=== PATIENT | male | born 1985 | race Caucasian/White ===

== ENCOUNTER 2018-03-01 15:23 | Emergency (ER) | payer OTHER ==
[~2018-03-01] VITALS: Ht 172.7 cm; Wt 83.9 kg
[2018-03-01] MEDS ORDERED: HYDR25TA PO (16:01)
--- NOTE | 2018-03-01 16:02 | PHYS DOC ---
Past History Past Medical History: Anxiety, GERD Past Surgical History: No Surgical History Alcohol Use: Rarely Drug Use: None Adult General Chief Complaint Chief Complaint: CHEST PAIN [facility] HPI Patient is a 32 year old male who presents with complaining of chest pain. Patient complaining of sudden onset of left-sided sharp chest pain with radiation to left shoulder while driving about 30 minutes ago. Patient rated his pain 6/10 and complaining of shortness of breath and palpitations without nausea, paresthesia, dizziness, cough and fever and chills. Patient states he had episodes of the same pain with anxiety attack but today didn't have anxiety. Patient denies smoking cigarettes or using drugs or alcohol. Patient denies suicidal and homicidal ideation and hallucination. Review of Systems Review of Systems Constitutional: Denies fever or chills [] Eyes: Denies change in visual acuity, redness, or eye pain [] HENT: Denies nasal congestion or sore throat [] Respiratory: Denies cough, reports shortness of breath [] Cardiovascular: No additional information not addressed in HPI [] GI: Denies abdominal pain, nausea, vomiting, bloody stools or diarrhea [] : Denies dysuria or hematuria [] Musculoskeletal: Denies back pain or joint pain [] Integument: Denies rash or skin lesions [] Neurologic: Denies headache, focal weakness or sensory changes [] Endocrine: Denies polyuria or polydipsia [] All other systems were reviewed and found to be within normal limits, except as documented in this note. Allergies Allergies Allergies Coded Allergies Type Severity Reaction Last Updated Verified No Known Drug Allergies 03/01/18 No Physical Exam Physical Exam Constitutional: Well developed, well nourished, no acute distress, non-toxic appearance. [] HENT: Normocephalic, atraumatic Eyes: PERRLA, EOMI, conjunctiva normal, no discharge. [] Neck: Normal range of motion, no tenderness, supple, no stridor. [] Cardiovascular:Heart rate regular rhythm, no murmur [] Lungs & Thorax: Bilateral breath sounds clear to auscultation [] Abdomen: Bowel sounds normal, soft, no tenderness, no masses, no pulsatile masses. [] Skin: Warm, dry, no erythema, no rash. [] Back: No tenderness, no CVA tenderness. [] Extremities: No tenderness, no cyanosis, no clubbing, ROM intact, no edema. [] Neurologic: Alert and oriented X 3, normal motor function, normal sensory function, no focal deficits noted. [] Psychologic: Affect anxious, judgement normal, mood normal. [] Current Patient Data Vital Signs Vital Signs Date Time Temp Pulse Resp B/P (MAP) Pulse Ox O2 Delivery O2 Flow Rate FiO2 03/01/18 15:35 97.3 108 20 99 Room Air EKG EKG EKG interpreted by me. EKG at 1535 showed normal sinus rhythm at rate of 100, no acute ST and T-wave abnormalities. Radiology/Procedures Radiology/Procedures [] Course & Med Decision Making Course & Med Decision Making Evaluation of patient in ER showed 4-year-old male patient complaining of chest pain and palpitation and shortness of breath that last about 15-20 minutes and resolved with rest and taking deep breaths. Patient had history of anxiety attack with the same symptoms. Patient had unremarkable physical exam and EKG. She did not want to have more evaluation and instructed to follow-up with his primary care physician. Prescription for hydroxyzine given for anxiety as needed. Dragon Disclaimer Dragon Disclaimer This electronic medical record was generated, in whole or in part, using a voice recognition dictation system. Departure Departure: Impression: Primary Impression: Panic attack Additional Impression: Non-cardiac chest pain Disposition: 01 HOME, SELF-CARE (at 1558) Condition: IMPROVED Referrals: LAM BOYD MD (PCP) Patient Instructions: Anxiety and Panic Attacks, Hyperventilation Additional Instructions: Drink plenty of liquids Follow-up with your primary care physician in 3-5 days Return to ER if not getting better Scripts Hydroxyzine Hcl (HYDROXYZINE HCL) 25 Mg Tablet 1 TAB PO QHS PRN for ANXIETY, #14 TAB Prov: ASHLY AUGUSTINE MD 03/01/18 Problem Qualifiers ASHLY AUGUSTINE MD Mar 01, 2018 16:01
[2018-03-01 16:04] VITALS: BP 132/85
== END 2018-03-01 16:06 | disposition home or self-care (01) ==
LOC: ER 15:23
DX: F41.0 Panic disorder [episodic paroxysmal anxiety] (principal); R07.89 Other chest pain; K21.9 Gastro-esophageal reflux disease without esophagitis
CPT/HCPCS: 99283